=== PATIENT | male | born 1980 | race Caucasian/White ===

== ENCOUNTER 2023-10-28 18:46 | Inpatient (IN) | payer SELFPAY ==
[2023-10-28 21:35] VITALS: BMI 23.3
[2023-10-28] MEDS ORDERED: IBUPROFEN 400 MG TABLET (FP) PO PRN (22:29)
[2023-10-28] MEDS ORDERED: NALOXONE (NARCAN) HCL 4 MG/0.1 ML SPRAY NS PRN (22:29)
[2023-10-28] MEDS ORDERED: MAG HYDROX/AL HYDROX/SIMETH 30 ML UNIT-DOSE CUP PO PRN (22:29)
[2023-10-28] MEDS ORDERED: ACETAMINOPHEN 325 MG TABLET (FP) PO PRN (22:29)
[2023-10-28] MEDS ORDERED: ONDANSETRON *ODT* 4 MG TABLET SL PRN (22:29)
[2023-10-28] MEDS ORDERED: MAGNESIUM HYDROX 2400MG/30ML ORAL SUSPENSION 30 ML CUP PO PRN (22:29)
[2023-10-28] MEDS ORDERED: guaiFENesin 600 MG TABLET.ER (FP) PO PRN (22:29)
[2023-10-28] MEDS ORDERED: DICYCLOMINE HCL 10 MG CAPSULE PO PRN (22:29)
[2023-10-28] MEDS ORDERED: BENZONATATE 200 MG CAPSULE PO PRN (22:29)
[2023-10-28] MEDS ORDERED: POLYETHYLENE GLYCOL (HEALTHYLAX) 3350 17 GM PACKET PO PRN (22:29)
[2023-10-28] MEDS ORDERED: LOPERAMIDE HCL 2 MG CAPSULE PO PRN (22:29)
[2023-10-28] MEDS ORDERED: IBUPROFEN 600 MG TABLET (FP) PO PRN (22:29)
[2023-10-28] MEDS ORDERED: NALOXONE HCL 0.4 MG/ML VIAL IM PRN (22:29)
[2023-10-28] MEDS ORDERED: BENZOCAINE/MENTHOL (CHLORASEPTIC ) LOZENGE MM PRN (22:29)
[2023-10-28] MEDS ORDERED: BISMUTH SUBSALICYLATE 524 MG/30 ML PO PRN (22:29)
[2023-10-28] MEDS ORDERED: chlordiazePOXIDE HCL 25 MG CAPSULE ONE (22:53)
[2023-10-28] MEDS: chlordiazePOXIDE HCL 25 MG CAPSULE PO SCH (22:58)
[2023-10-29] MEDS: METHOCARBAMOL 500 MG TABLET PO PRN (00:58)
[2023-10-29] MEDS: hydrOXYzine PAMOATE 25 MG CAPSULE (FP) PO PRN (00:58)
[2023-10-29] MEDS: NICOTINE 21 MG/24 HOURS TOPICAL PATCH TD SCH (10:55)
[2023-10-29] MEDS: PRENATAL VITAMINS W/ FOLIC ACID TABLET (FP) PO SCH (10:55)
[2023-10-29 11:08] LABS: CHLORIDE 100 mmol/L (98-107); POTASSIUM 3.6 mmol/L (3.5-5.1); SODIUM 139 mmol/L (136-145)
[2023-10-29 11:11] LABS: ALBUMIN 3.6 g/dl (3.4-5.0); ANION GAP 9 mmol/L (4-13); BLOOD UREA NITROGEN 15.3 mg/dL (7-18); CALCIUM 8.5 mg/dL (8.5-10.1); CO2 29 mmol/L (21-32); GLUCOSE,RANDOM 89 mg/dL (74-106)
[2023-10-29 11:13] LABS: SGOT/AST 127 U/L (15-37)
[2023-10-29 11:15] LABS: CREATININE 0.8 mg/dL (0.55-1.3); SGPT/ALT 107 U/L (13-61)
[2023-10-29 11:16] LABS: BILIRUBIN,TOTAL 1.4 mg/dL (0.2-1); TOT PROT 6.8 g/dl (6.4-8.2)
[2023-10-29 11:17] LABS: HEMATOCRIT 42.2 % (35.4-49); HEMOGLOBIN 14.7 GM/dL (11.7-16.9); MCH 36.1 pg (25.7-33.7); MEAN CELL VOLUME 103.2 fl (80-96); MEAN PLT VOLUME 7.6 fl (7.5-11.1); PLATELET COUNT 164 10^3/uL (134-434); RBC 4.09 M/mm3 (4.00-5.60); RDW 14.2 % (11.9-15.9); WHITE BLOOD COUNT 3.6 K/mm3 (4.0-10.0)
[2023-10-29 11:18] LABS: ALK PHOS 42 U/L (45-117)
[2023-10-29] MEDS: chlordiazePOXIDE HCL 25 MG CAPSULE PO PRN (14:02)
[2023-10-29] MEDS: MELATONIN 5 MG TABLETS PO SCH (21:49)
[2023-10-29] MEDS: THIAMINE 100 MG TABLET PO SCH (21:49)
[2023-10-30] MEDS: chlordiazePOXIDE HCL 25 MG CAPSULE PO SCH (05:34)
[2023-10-30] MEDS: NICOTINE POLACRILEX 2 MG GUM BUC PRN (17:09)
[2023-10-31] MEDS: chlordiazePOXIDE HCL 10 MG CAPSULE PO SCH (05:36)
[2023-10-31] MEDS: chlordiazePOXIDE HCL 10 MG CAPSULE PO PRN (08:29)
[2023-10-31] MEDS: traZODone HCL 50 MG TABLET (FP) PO SCH (22:23)
[2023-11-01] MEDS: chlordiazePOXIDE HCL 10 MG CAPSULE PO SCH (05:34)
[2023-11-02] MEDS: chlordiazePOXIDE HCL 10 MG CAPSULE PO ONE (05:48)
[2023-11-03] MEDS: QUEtiapine FUMARATE 100 MG TABLET (FP) PO PRN (21:13)
[2023-11-04 06:20] VITALS: BP 96/64; PULSE 100; RESP 16; TEMP 96.8
== END 2023-11-04 06:27 | disposition home or self-care (01) | DRG 774 ==
LOC: YASAS 18:46 → Y6N 23:03
PROVIDERS: ADMIT Allergy & Immunology; ATTEND Surgery
PROC: HZ2ZZZZ Detoxification Services for Substance Abuse Treatment (ICD-10-PCS; principal; 2023-10-28)
DX: F10.230 Alcohol dependence with withdrawal, uncomplicated (principal); F14.20 Cocaine dependence, uncomplicated; F17.210 Nicotine dependence, cigarettes, uncomplicated; F19.282 Other psychoactive substance dependence with psychoactive substance-induced sleep disorder; F19.280 Other psychoactive substance dependence with psychoactive substance-induced anxiety disorder; F19.24 Other psychoactive substance dependence with psychoactive substance-induced mood disorder; F32.9 Major depressive disorder, single episode, unspecified; F41.9 Anxiety disorder, unspecified; G47.00 Insomnia, unspecified; R74.01 Elevation of levels of liver transaminase levels; R74.8 Abnormal levels of other serum enzymes
CPT/HCPCS: 36415; 80053; 80305; 80307; 85027; 86780; 93005; 93010